=== PATIENT | male | born 1990 | race Caucasian/White ===

== ENCOUNTER 2017-01-02 19:58 | Emergency (ER) | payer MEDICAID ==
[2017-01-02 20:04] VITALS: BP 124/75; PULSE 96; O2SAT 97
--- NOTE | 2017-01-02 20:26 | ERPHSYRPT ---
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 mouth and oral area clear of any debris,lung sounds clear , pulses equal bialteral radius Physician History: ABOUT 20 MINUTES AGO PT WAS EATING AND CHOKED WITH WATERY EYES; DENIES SHORTNESS OF AIR, CHEST PAIN, FEVER, ABDOMINAL PAIN. Allergies/Adverse Reactions: No Known Drug Allergies Allergy (Verified 03/18/16 09:25) Home Medications: Acetaminophen 325 mg [Tylenol 325 mg] 325 mg PO Q4HPRN PRN 02/29/16 [ History] Fluticasone Propionate [Flonase NASAL] 2 gm NS DAILY PRN 02/29/16 [History ] Mupirocin [Bactroban OINTMENT] 0 gm TOP BID 02/29/16 [History] Phenytoin [Dilantin] 100 mg PO HS 02/29/16 [History] Hx Tetanus, Diphtheria Vaccination/Date Given: Yes Hx Influenza Vaccination/Date Given: No Hx Pneumococcal Vaccination/Date Given: No Immunizations Up to Date: Yes - Review of Systems Eyes: Other (WATERY EYES TONIGHT) Ears, Nose, & Throat: Other (CHOKING EPISODE) Respiratory: No Dyspnea Cardiac: No Chest Pain Abdominal/Gastrointestinal: No Abdominal Pain, No Vomiting All Other Systems: Reviewed and Negative - Past Medical History Pertinent Past Medical History: Yes Neurological History: Other ENT History: No Pertinent History Cardiac History: Other Respiratory History: Sleep Apnea Endocrine Medical History: No Pertinent History Musculoskeletal History: Other GI Medical History: No Pertinent History History: No Pertinent History Psycho-Social History: No Pertinent History Male Reproductive Disorders: No Pertinent History Other Medical History: MYOTONIC DYSTROPHY - Past Surgical History Past Surgical History: Yes Neuro Surgical History: No Pertinent History Cardiac: No Pertinent History Respiratory: No Pertinent History Gastrointestinal: No Pertinent History Genitourinary: No Pertinent History Musculoskeletal: Orthopedic Surgery Male Surgical History: No Pertinent History Other Surgical History: TONSILLECTOMY - PATELLA - Social History Smoking Status: Never smoker Exposure to second hand smoke: No Drug Use: none Patient Lives Alone: Yes - Nursing Vital Signs Nursing Vital Signs: Initial Vital Signs Temperature 99.2 F Temperature Source Oral Pulse Rate 96 Respiratory Rate 18 Blood Pressure [] 124/75 Pain Intensity 0 - Physical Exam General Appearance: alert Eye Exam: PERRL/EOMI Ears, Nose, Throat Exam: TMs normal, moist mucous membranes, pharyngeal erythema (MILD) Neck Exam: normal inspection Respiratory Exam: lungs clear Cardiovascular Exam: normal heart sounds Gastrointestinal/Abdomen Exam: soft, normal bowel sounds Back Exam: normal inspection Extremity Exam: No pedal edema Neurologic Exam: alert, cooperative Skin Exam: warm, dry SpO2 Interpretation: normal SpO2: 97 Oxygen Delivery: Room Air - Course Nursing assessment & vital signs reviewed: Yes - Radiology Exams Chest X-ray Interpretation: Interpreted by me, No Pneumonia Ordered Tests: Active Orders 24 hr Category Date Time Status CHEST 2 VIEWS (PA AND LAT) Stat Exams 01/02/17 20:22 Taken CULTURE, THROAT Stat Lab 01/02/17 20:45 Received STREP SCREEN-BETA A Stat Lab 01/02/17 20:45 Completed Lab/Rad Data: Laboratory Results 01/02/17 Range/Units 20:45 Streptococcus Screen NEGATIVE (Negative) - Departure Time of Disposition: 21:06 Departure Disposition: Home Clinical Impression: CHOKING EPISODE Condition: Fair Critical Care Time: No Referrals: NEVAEH HAMEED MD [Primary Care Provider] - Instructions: Oropharyngeal Dysphagia Additional Instructions: FOLLOW UP WITH PRIVATE DOCTOR TOMORROW.
--- NOTE | 2017-01-03 08:44 | XRAY ---
Indication: Choking episode. History of dysphagia. Comparison: September 09, 2016. PA/lateral chest again demonstrates normal heart and lungs with old right clavicle fracture. No new/acute findings.
== END 2017-01-02 21:10 | disposition home or self-care (01) ==
LOC: ED 19:58
DX: T17.828A Food in other parts of respiratory tract causing other injury, initial encounter (principal); G71.11 Myotonic muscular dystrophy
CPT/HCPCS: 71020; 87070; 87430; 99283; 99284

== ENCOUNTER 2018-02-06 19:23 | Emergency (ER) | payer MEDICAID ==
[2018-02-06 19:33] VITALS: BP 131/84; PULSE 90; O2SAT 98
--- NOTE | 2018-02-06 19:45 | ERPHSYRPT ---
- History of Present Illness Time Seen by Provider: 02/06/18 19:42 Source: patient, family Exam Limitations: no limitations Patient Subjective Stated Complaint: Hit head on cabinet after getting out of shower, denies complaints. Triage Nursing Assessment: Pt presents to the ED with complaints of closed head injury after hitting head on a cabinet. Pt denies LOC, denies emesis, dizziness or other complaints at this time. Pt denies pain or complaints at this time. No distress noted. Physician History: Hit head on cabinet after getting out of shower, denies complaints. Pt denies LOC, denies emesis, dizziness or other complaints at this time. Pt denies pain or complaints at this time. Occurred: just prior to arrival Reason for Fall: unknown Injuries/Pain Location: head Loss of Consciousness: no loss of consciousness Severity of Pain-Max: none Severity of Pain-Current: none Modifying Factors: Improves With: nothing Allergies/Adverse Reactions: No Known Drug Allergies Allergy (Verified 03/18/16 09:25) Home Medications: Acetaminophen 325 mg [Tylenol 325 mg] 325 mg PO Q4HPRN PRN 02/29/16 [ History] Fluticasone Propionate [Flonase NASAL] 2 gm NS DAILY PRN 02/29/16 [History ] Mupirocin [Bactroban OINTMENT] 0 gm TOP BID 02/29/16 [History] Phenytoin [Dilantin] 100 mg PO HS 02/29/16 [History] Hx Tetanus, Diphtheria Vaccination/Date Given: Yes Hx Influenza Vaccination/Date Given: Yes Hx Pneumococcal Vaccination/Date Given: No Immunizations Up to Date: Yes - Review of Systems Constitutional: No Fever, No Chills Eyes: No Symptoms Ears, Nose, & Throat: No Symptoms Respiratory: No Cough, No Dyspnea Cardiac: No Chest Pain, No Edema, No Syncope Abdominal/Gastrointestinal: No Abdominal Pain, No Nausea, No Vomiting, No Diarrhea Genitourinary Symptoms: No Dysuria Musculoskeletal: No Back Pain, No Neck Pain Skin: No Rash Neurological: No Dizziness, No Focal Weakness, No Sensory Changes Psychological: No Symptoms Endocrine: No Symptoms All Other Systems: Reviewed and Negative - Past Medical History Pertinent Past Medical History: Yes Neurological History: No Pertinent History ENT History: No Pertinent History Cardiac History: No Pertinent History Respiratory History: Other Endocrine Medical History: No Pertinent History Musculoskeletal History: Muscular Dystrophy GI Medical History: No Pertinent History History: No Pertinent History Psycho-Social History: No Pertinent History Male Reproductive Disorders: No Pertinent History Other Medical History: sleeps with bypap, speech difficulty, 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 - Past Surgical History Past Surgical History: Yes Neuro Surgical History: No Pertinent History Cardiac: No Pertinent History Respiratory: No Pertinent History Gastrointestinal: No Pertinent History Genitourinary: No Pertinent History Musculoskeletal: Orthopedic Surgery Male Surgical History: No Pertinent History Other Surgical History: TONSILLECTOMY - PATELLA - Social History Smoking Status: Never smoker Exposure to second hand smoke: No Drug Use: none Patient Lives Alone: No - Nursing Vital Signs Nursing Vital Signs: Initial Vital Signs Temperature 97.6 F 02/06/18 19:30 Pulse Rate 90 02/06/18 19:30 Respiratory Rate 16 02/06/18 19:30 Blood Pressure 131/84 02/06/18 19:30 O2 Sat by Pulse Oximetry 98 02/06/18 19:30 Pain Scale Pain Intensity 0 - Esperanza Coma Score Best Eye Response (Esperanza): (4) open spontaneously Best Verbal Response (Es[place]): (5) oriented Best Motor Response (Es[place]): (6) obeys commands [place] Total: 15 - Physical Exam General Appearance: no apparent distress, alert Head Injury: no evidence of injury Eye Exam: PERRL/EOMI ENT Exam: airway nml Neck Exam: normal inspection, No tenderness Respiratory/Chest Exam: normal breath sounds, No chest tenderness, No respiratory distress Cardiovascular Exam: normal heart sounds, regular rate/rhythm Gastrointestinal Exam: soft, No tenderness, No distention, No guarding, No ecchymosis Back Exam: normal inspection, No vertebral tenderness Extremity Exam: normal inspection, normal range of motion, pelvis stable, No deformities Neurologic Exam: alert, oriented x 3, cooperative, sensation nml, No motor deficits Skin Exam: normal color, warm, dry SpO2: 98 Oxygen Delivery: Room Air - Course Nursing assessment & vital signs reviewed: Yes - Progress Progress: improved Counseled pt/family regarding: diagnosis, need for follow-up - Departure Time of Disposition: 19:44 Departure Disposition: Home Clinical Impression: Head injury, closed, without LOC Qualifiers: Encounter type: initial encounter Qualified Code(s): S09.90XA - Unspecified injury of head, initial encounter Condition: Stable Critical Care Time: No Referrals: DOCTOR,NO FAMILY [Primary Care Provider] - Instructions: Minor Head Injury (DC), Minor Head Injury Additional Instructions: HEAD INJURY 1. A responsible person should observe the patient at home for 24 hours. 2. If any of the following signs or symptoms are observed or occur, call your family physician or return to the emergency department: A. Behavior change B. Persistent vomiting C. Unequal pupils D. Increasing drowsiness E. Difficulty in arousing the patient F. Severe headache G. Lump on head increasing in size LEOLA HINES was seen on 02/06/18 n the Emergency Room. At that time you were treated for an emergent condition, during your visit Laboratory, Radiology and/or other procedures may have been ordered. It is very important that you follow-up with your Primary Care Physician NO FAMILY DOCTOR within the next 24-48 hours to review your Emergency Room visit and the final results of testing that was ordered. Some test results such as Urine Cultures, Blood Cultures, and other cultures if ordered will not be finalized for 24-48 hours. If you do not have a Primary Care Provider please call the medical records department at [phone] to obtain a copy of your results or you may sign into our patient portal to obtain these results by visiting us @ [email or web address] and completing the following steps: 1. Click on the Patient Portal link 2. Click the Patient Self Enrollment Link to complete the enrollment form and entering your 3. Once the enrollment form is completed you will receive an email with a temporary ID and password at the email address you provided. 4. Next choose a user name and password. Your user name must be at least 4 characters long and your password must be at least 4 characters long. 5. Choose a security question from the list and provide your answer to the question. If you already have signed into the Health Portal you may access your Health Care Information 09/06 by the following steps: 1. Login to our website @ [email or web address] 2. Enter your original user name and password. FAQS The [facility] Health Portal is an online tool that contains your Lab Results, Radiology Reports, Visit History, Discharge Instructions and Health Summary Lab and Radiology Results will not be available for 72 hours on the portal. The Portal is a secure site, passwords are encryted and URLs are re-written so they cannot be copied and pasted. You and authorized family members are the only ones who can access your Portal. Also there is a timeout feature that protects your information if you leave the Portal page open. If you have technical difficulty please use the Contact Us link on the page this will allow you to submit any questions you have regarding the Portal or you may contact the Medical Record Department at [phone].
== END 2018-02-06 20:03 | disposition home or self-care (01) ==
LOC: ED 19:23
DX: S09.90XA Unspecified injury of head, initial encounter (principal); W22.8XXA Striking against or struck by other objects, initial encounter
CPT/HCPCS: 99281

== ENCOUNTER 2018-07-14 19:36 | Emergency (ER) | payer MEDICAID ==
[2018-07-14 19:53] VITALS: BP 111/69; PULSE 84; O2SAT 99
--- NOTE | 2018-07-14 21:18 | ERPHSYRPT ---
- History of Present Illness Time Seen by Provider: 07/14/18 21:12 Source: patient Exam Limitations: no limitations Patient Subjective Stated Complaint: pt was eating [employer] soft shell taco, felt like something was stuck in his esophagus, vomited, tried eating and drinking again, vomited again and now feels fine. States no longer feels like something is stuck. Triage Nursing Assessment: see above Physician History: The patient is a 27-year-old male with his caregiver from [facility] living where it was noted that while eating a soft shelled taco, felt like something was stuck in his throat. The patient vomited. It still felt like something was stuck. He vomited a second time and felt like everything had improved back to normal. He has a history of dysphagia and by the penitentiary protocol he was obligated to be evaluated. He denies shortness of breath or cough. Timing/Duration: abrupt onset, this evening Severity: moderate ENT Location: throat Prearrival Treatment: no prearrival treatment Associated Symptoms: other (throat foreign body) Allergies/Adverse Reactions: No Known Drug Allergies Allergy (Verified 07/14/18 19:53) Home Medications: Acetaminophen 325 mg [Tylenol 325 mg] 325 mg PO Q4HPRN PRN 02/29/16 [ History] Fluticasone Propionate [Flonase NASAL] 2 gm NS DAILY PRN 02/29/16 [History ] Mupirocin [Bactroban OINTMENT] 0 gm TOP BID 02/29/16 [History] Phenytoin [Dilantin] 100 mg PO HS 02/29/16 [History] Folic Acid/Multivit,Iron,[place] [Centrum Chewable Tablet] 1 each PO 07/14/18 [ History] Loratadine 10 mg [Claritin 10 mg] 10 mg PO DAILY 07/14/18 [History] Hx Tetanus, Diphtheria Vaccination/Date Given: Yes Hx Influenza Vaccination/Date Given: Yes Hx Pneumococcal Vaccination/Date Given: No - Review of Systems Constitutional: No Fever, No Chills Eyes: No Symptoms Ears, Nose, & Throat: Other (throat foreign body) Respiratory: No Cough, No Dyspnea Cardiac: No Chest Pain, No Edema, No Syncope Abdominal/Gastrointestinal: No Abdominal Pain, No Nausea, No Vomiting, No Diarrhea Genitourinary Symptoms: No Dysuria Musculoskeletal: No Back Pain, No Neck Pain Skin: No Rash Neurological: No Dizziness, No Focal Weakness, No Sensory Changes Psychological: No Symptoms Endocrine: No Symptoms Hematologic/Lymphatic: No Symptoms Immunological/Allergic: No Symptoms All Other Systems: Reviewed and Negative - Past Medical History Pertinent Past Medical History: Yes Neurological History: No Pertinent History ENT History: No Pertinent History Cardiac History: No Pertinent History Respiratory History: Other Endocrine Medical History: No Pertinent History Musculoskeletal History: Muscular Dystrophy GI Medical History: No Pertinent History History: No Pertinent History Psycho-Social History: No Pertinent History Male Reproductive Disorders: No Pertinent History Other Medical History: sleeps with bypap, speech difficulty, 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 - Past Surgical History Past Surgical History: Yes Neuro Surgical History: No Pertinent History Cardiac: No Pertinent History Respiratory: No Pertinent History Gastrointestinal: No Pertinent History Genitourinary: No Pertinent History Musculoskeletal: Orthopedic Surgery Male Surgical History: No Pertinent History Other Surgical History: TONSILLECTOMY - PATELLA - Social History Smoking Status: Never smoker Exposure to second hand smoke: No Drug Use: none Patient Lives Alone: No - Nursing Vital Signs Nursing Vital Signs: Initial Vital Signs Temperature 97.9 F 07/14/18 19:46 Pulse Rate 84 07/14/18 19:46 Respiratory Rate 18 07/14/18 19:46 Blood Pressure 111/69 07/14/18 19:46 O2 Sat by Pulse Oximetry 99 07/14/18 19:46 Pain Scale Pain Intensity 0 - Physical Exam General Appearance: no apparent distress, alert Eye Exam: bilateral eye: PERRL, EOMI Nasal Exam: normal inspection Throat Exam: pharynx normal, moist mucus membranes, No tonsillar exudate Neck Exam: supple Cardiovascular/Respiratory Exam: normal breath sounds, regular rate/rhythm Abdominal Exam: non-tender, soft Neurologic Exam: alert, oriented x 3, sensation nml, No motor deficits Skin Exam: normal color, warm, dry SpO2: 99 Oxygen Delivery: Room Air - Progress Progress: improved Progress Note: 07/14/18 21:19 Pt ate solid food and drank fluids in ER without any problems. Counseled pt/family regarding: diagnosis - Departure Time of Disposition: 21:20 Departure Disposition: Home Clinical Impression: Foreign body in throat Condition: Stable Critical Care Time: No Referrals: NEVAEH HAMEED MD [Primary Care Provider] - Additional Instructions: You had a foreign body lodged in your throat while you were eating. You vomited twice dislodging the foreign body. You were able to drink fluids and eat solid food in the ER without any difficulty. Follow-up with your primary medical doctor as needed.
== END 2018-07-14 21:26 | disposition home or self-care (01) ==
LOC: ED 19:36
DX: T17.208A Unspecified foreign body in pharynx causing other injury, initial encounter (principal); Z79.899 Other long term (current) drug therapy
CPT/HCPCS: 99283

== ENCOUNTER 2019-02-21 19:05 | Emergency (ER) | payer MEDICAID ==
[2013-08-13 10:36] VITALS: BP 108/62
--- NOTE | 2019-02-21 19:45 | ERPHSYRPT ---
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 Patient A+O X 3. Patient lives at home with staff assisting him from 8am- 10pm daily. Patient and staff state patient tripped off of a curb causing him to fall and land on knees and hands. Patient and staff denies hitting head. Patient complains of left shoulder pain 9/10. No visible areas noted to left shoulder. Patient also complains of mid lower back pain 4/10 with no visible areas noted. Patient has abrasions to saul knees. Physician History: Pt tripped over the curb and fell, injured his elbows, left shoulder, back and both knees. 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 He is mentally challenged, he is unable to give detailed history. Occurred: just prior to arrival Reason for Fall: tripped Injuries/Pain Location: upper extremity, back, lower extremity Loss of Consciousness: no loss of consciousness Quality: sharpness Severity of Pain-Max: moderate Severity of Pain-Current: mild Modifying Factors: Improves With: nothing Associated Symptoms (Fall): denies symptoms Allergies/Adverse Reactions: No Known Drug Allergies Allergy (Unverified 02/21/19 19:14) Hx Influenza Vaccination/Date Given: Yes Hx Pneumococcal Vaccination/Date Given: No Immunizations Up to Date: Yes - Review of Systems Constitutional: No Symptoms Ears, Nose, & Throat: No Symptoms Respiratory: No Symptoms Cardiac: No Symptoms Abdominal/Gastrointestinal: No Symptoms Genitourinary Symptoms: No Symptoms Musculoskeletal: Other (bilateral elbow, left posterior shoulder and both knees are painful upon movements.) Skin: No Symptoms Neurological: No Symptoms All Other Systems: Reviewed and Negative - Past Medical History Pertinent Past Medical History: No Neurological History: No Pertinent History ENT History: No Pertinent History Cardiac History: No Pertinent History Respiratory History: No Pertinent History Endocrine Medical History: No Pertinent History Musculoskeletal History: No Pertinent History GI Medical History: No Pertinent History History: No Pertinent History Psycho-Social History: No Pertinent History Male Reproductive Disorders: No Pertinent History - Past Surgical History Past Surgical History: Yes Neuro Surgical History: No Pertinent History Cardiac: No Pertinent History Respiratory: No Pertinent History Gastrointestinal: Cholecystectomy Genitourinary: No Pertinent History Musculoskeletal: No Pertinent History Male Surgical History: No Pertinent History - Social History Smoking Status: Never smoker Exposure to second hand smoke: No Drug Use: none Patient Lives Alone: Yes (has care staff 8a-10p daily) - Nursing Vital Signs Nursing Vital Signs: Initial Vital Signs Temperature 98.3 F 02/21/19 19:15 Pulse Rate 77 02/21/19 19:15 Respiratory Rate 18 02/21/19 19:15 Blood Pressure 128/77 02/21/19 19:15 O2 Sat by Pulse Oximetry 94 L 02/21/19 19:15 Pain Scale Pain Intensity 9 - [place] Coma Score Best Eye Response ([place]): (4) open spontaneously Best Verbal Response ([place]): (5) oriented Best Motor Response ([place]): (6) obeys commands [place] Total: 15 - Physical Exam General Appearance: no apparent distress Head Injury: no evidence of injury Eye Exam: PERRL/EOMI, eyes nml inspection ENT Exam: airway nml, No evidence of ENT injury, No dental injury Neck Exam: supple, trachea midline, full range of motion, normal alignment, normal inspection, No focal neuro deficit, No muscle spasm Respiratory/Chest Exam: normal breath sounds, No chest tenderness, No respiratory distress, No ecchymosis, No crepitus Cardiovascular Exam: normal heart sounds, regular rate/rhythm, normal peripheral pulses, No murmur, No edema Gastrointestinal Exam: soft, normal bowel sounds, No tenderness, No distention, No mass, No guarding, No ecchymosis, No rebound Back Exam: normal inspection, other (diffuse, bilateral lumbo-sacral tenderness , no swelling, ecchymosis.) Extremity Exam: normal inspection, normal range of motion, pelvis stable, other (both olecranons and anterior knees are tender, no swelling or ecchymosis, no effusion, good ROM, pain free, normal distral pulses) Peripheral Pulses: dorsalis-pedis (R): 3+, dorsalis-pedis (L): 3+ Neurologic Exam: alert, oriented x 3, cooperative, normal mood/affect Skin Exam: normal color, warm, dry, No rash SpO2 Interpretation: normal SpO2: 94 O2 Delivery: Room Air - Course Nursing assessment & vital signs reviewed: Yes - Radiology Exams Left Elbow X-ray Interpretation: Interpreted by me, Negative Right Elbow X-ray Interpretation: Interpreted by me, Negative Left Knee X-ray Interpretation: Interpreted by me, Negative Right Knee X-ray Interpretation: Interpreted by me, Negative Left Shoulder X-ray Interpretation: Interpreted by me, Negative L-Spine X-ray Interpretation: Interpreted by me, Negative Ordered Tests: Active Orders 24 hr Category Date Time Status ELBOW (MINIMUM 3 VIEWS) Stat Exams 02/21/19 19:38 Taken ELBOW (MINIMUM 3 VIEWS) Stat Exams 02/21/19 19:39 Taken KNEE (1 OR 2 VIEW) Stat Exams 02/21/19 19:38 Taken KNEE (1 OR 2 VIEW) Stat Exams 02/21/19 19:39 Taken LUMBAR LIMITED (2 OR 3 VIEWS) Stat Exams 02/21/19 19:39 Taken SHOULDER Stat Exams 02/21/19 19:43 Taken - Progress Progress: unchanged Progress Note: 02/21/19 21:16 We reviewed his X rays, all negative, 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 Counseled pt/family regarding: diagnosis, need for follow-up, rad results - Departure Departure Disposition: Home Clinical Impression: Back contusion Qualifiers: Encounter type: initial encounter Laterality: unspecified laterality Qualified Code(s): S20.229A - Contusion of unspecified back wall of thorax, initial encounter Condition: Stable Critical Care Time: No Referrals: NEVAEH HAMEED MD [Primary Care Provider] - Instructions: Contusion (DC), Low Back Pain (DC), Preventing Falls Additional Instructions: Rest x 1-2 days, apply ice to swelling, return if severe headaches, vomiting, lethargy !
[2019-02-21 22:16] VITALS: BP 106/61; PULSE 72; O2SAT 96
--- NOTE | 2019-02-22 09:07 | XRAY ---
Indication: Pain following fall. Comparison: None AP/lateral right knee demonstrates minimal medial joint space narrowing. No other bony, articular, or soft tissue abnormalities.
--- NOTE | 2019-02-22 09:09 | XRAY ---
Indication: Pain following fall. Comparison: None 3 views of the left shoulder obtained. No bony, articular, or soft tissue abnormalities.
--- NOTE | 2019-02-22 09:10 | XRAY ---
Indication: Pain following fall. Comparison: None 3 views of the left elbow obtained. No bony, articular, or soft tissue abnormalities.
--- NOTE | 2019-02-22 09:10 | XRAY ---
Indication: Pain following fall. Comparison: None 3 views of the right elbow obtained. No bony, articular, or soft tissue abnormalities.
--- NOTE | 2019-02-22 09:10 | XRAY ---
Indication: Pain following fall. Comparison: None AP/lateral left knee obtained. No bony, articular, or soft tissue abnormalities.
--- NOTE | 2019-02-22 09:12 | XRAY ---
Indication: Pain following fall. Comparison: None 3 views of the lumbar spine demonstrates 5 lumbar vertebral segments in normal alignment with minimal L5-S1 disc space narrowing. No other bony, articular, or soft tissue abnormalities.
== END 2019-02-21 22:18 | disposition home or self-care (01) ==
LOC: MERGE 19:05 → ED 19:05
DX: S20.229A Contusion of unspecified back wall of thorax, initial encounter (principal); M54.5 Low back pain; M25.512 Pain in left shoulder; W01.198A Fall on same level from slipping, tripping and stumbling with subsequent striking against other object, initial encounter; S80.212A Abrasion, left knee, initial encounter; S80.211A Abrasion, right knee, initial encounter; M25.562 Pain in left knee; M25.561 Pain in right knee; M25.522 Pain in left elbow; M25.521 Pain in right elbow
CPT/HCPCS: 72100; 73030; 73080; 73560; 99283

== ENCOUNTER 2019-02-23 19:03 | Emergency (ER) | payer MEDICAID ==
[2019-02-23 19:25] VITALS: BP 124/73; PULSE 95; O2SAT 95
--- NOTE | 2019-02-23 19:39 | ERPHSYRPT ---
- History of Present Illness Time Seen by Provider: 02/23/19 19:30 Source: patient Exam Limitations: clinical condition Patient Subjective Stated Complaint: pt states he was looking at phone while walking and tripped and fell this afternoon. pt c/o pain in left arm and rt knee. Triage Nursing Assessment: Pt pink/warm/dry, resp easy, a&ox4, steady gait, abrasions to left elbow and saul knees noted. pt has physical disabilities and congnitive defecits noted. caregiver at bedside. Physician History: PATIENT WITH A HISTORY CONGENITAL MYOTONIC DYSTROPHY WHILE WALKING DOWN SIDEWALK , CAUGHT HIS FOOT AGAINST STEP AND FELL TO GROUND SUSTAINING INJURY TO HIS LEFT ELBOW AND RIGHT KNEE. DENIES HEAD, NECK OR BACK PAIN. PATIENT COMPLAINS OF ABRASIONS OVER ELBOW AND KNEE. Occurred: just prior to arrival Reason for Fall: tripped, fell from standing pos Injuries/Pain Location: upper extremity, lower extremity Loss of Consciousness: still comatose Quality: aching Severity of Pain-Max: none Severity of Pain-Current: none Modifying Factors: Improves With: nothing Associated Symptoms (Fall): denies symptoms Allergies/Adverse Reactions: No Known Drug Allergies Allergy (Verified 02/23/19 19:14) Home Medications: Acetaminophen 325 mg [Tylenol 325 mg] 325 mg PO Q4HPRN PRN 02/29/16 [ History] Fluticasone Propionate [Flonase NASAL] 2 gm NS DAILY PRN PRN 02/29/16 [ History] Phenytoin [Dilantin] 100 mg PO BID 02/29/16 [History] Loratadine 10 mg [Claritin 10 mg] 10 mg PO DAILY 07/14/18 [History] Multivit-Min/Iron/Folic/Vit K1 [Centrum Chewable Tablet] 1 each PO DAILY [History] Dextromethorphan HBr [Delsym] 30 mg PO DIRECTIONS UNKNOWN PRN 02/23/19 [History] Hx Tetanus, Diphtheria Vaccination/Date Given: Yes Hx Influenza Vaccination/Date Given: Yes Hx Pneumococcal Vaccination/Date Given: Yes Immunizations Up to Date: Yes - Review of Systems Constitutional: No Fever, No Chills Eyes: No Symptoms Ears, Nose, & Throat: No Symptoms Respiratory: No Symptoms, No Cough, No Dyspnea Cardiac: No Chest Pain, No Edema, No Syncope Abdominal/Gastrointestinal: No Symptoms, No Abdominal Pain, No Nausea, No Vomiting, No Diarrhea Genitourinary Symptoms: No Dysuria Musculoskeletal: Injury, Other (ABRASIONS WITH SWELLING OVER EXTREMITIES), No Back Pain, No Neck Pain Skin: No Rash Neurological: No Dizziness, No Focal Weakness, No Sensory Changes Psychological: No Symptoms Endocrine: No Symptoms All Other Systems: Reviewed and Negative - Past Medical History Pertinent Past Medical History: Yes Neurological History: No Pertinent History, Other ENT History: No Pertinent History Cardiac History: No Pertinent History Respiratory History: No Pertinent History, Sleep Apnea, Other Endocrine Medical History: No Pertinent History Musculoskeletal History: No Pertinent History, Muscular Dystrophy GI Medical History: No Pertinent History History: No Pertinent History Psycho-Social History: No Pertinent History Male Reproductive Disorders: No Pertinent History Other Medical History: Poor historian. Congenital myotonic dystrophy. bipap for sleep - Past Surgical History Past Surgical History: Yes Neuro Surgical History: No Pertinent History Cardiac: No Pertinent History Respiratory: No Pertinent History Gastrointestinal: No Pertinent History, Cholecystectomy Genitourinary: No Pertinent History Musculoskeletal: No Pertinent History, Orthopedic Surgery, Other Male Surgical History: No Pertinent History Other Surgical History: TONSILLECTOMY - PATELLA, cyst removed from leg - Social History Smoking Status: Never smoker Exposure to second hand smoke: No Drug Use: none Patient Lives Alone: Yes (with caregivers during the day) - Nursing Vital Signs Nursing Vital Signs: Initial Vital Signs Temperature 97.7 F 02/23/19 19:17 Pulse Rate 95 H 02/23/19 19:17 Respiratory Rate 16 02/23/19 19:17 Blood Pressure 124/73 02/23/19 19:17 O2 Sat by Pulse Oximetry 95 02/23/19 19:17 Pain Scale Pain Intensity 9 - Physical Exam General Appearance: no apparent distress, alert Head Injury: no evidence of injury Eye Exam: PERRL/EOMI ENT Exam: airway nml Neck Exam: normal inspection, No tenderness Respiratory/Chest Exam: normal breath sounds, No chest tenderness, No respiratory distress Cardiovascular Exam: normal heart sounds, regular rate/rhythm Gastrointestinal Exam: soft, No tenderness, No distention, No guarding, No ecchymosis Back Exam: normal inspection, No vertebral tenderness Extremity Exam: normal inspection, normal range of motion, pelvis stable, tenderness (RIGHT KNEE, PATELLA MIDLINE AND MOBILE, ABRASION 1.5CM X 2CM OVER LATERAL FEMORAL CONDYLE, FULL RANGE OF MOTION, NO JOINT LAXITY UPON VARUS/ VALGUS STRESS, NEGATIVE ANTERIOR DRAW SIGN.), other (LEFT ELBOW FULL RANGE OF MOTION, THERE IS A ABRASION 1.5CM X 1CM OVER LATERAL ASPECT OLECRANON, NO CREPITUS OR ECCHYMOSIS, MINIMAL SWELLING), No deformities Neurologic Exam: alert, oriented x 3, cooperative, sensation nml, No motor deficits Skin Exam: normal color, warm, dry SpO2: 95 - Radiology Exams Right Knee X-ray Interpretation: Interpreted by me, Negative, No Fracture Left Elbow X-ray Interpretation: Interpreted by me, Negative, No Fracture Ordered Tests: Active Orders 24 hr Category Date Time Status Wound Care STAT Care 02/23/19 19:39 Active ELBOW (MINIMUM 3 VIEWS) Stat Exams 02/23/19 19:34 Taken KNEE (3 VIEWS) Stat Exams 02/23/19 19:35 Taken - Progress Progress Note: 02/23/19 19:48 PATIENT REFUSES ANALGESICS - Departure Departure Disposition: Home Clinical Impression: CONTUSION LEFT ELBOW/RIGHT KNEE Condition: Stable Critical Care Time: No Referrals: NEVAEH HAMEED MD [Primary Care Provider] - Instructions: Contusion (DC) Additional Instructions: TYLENOL OR MOTRIN NEEDED FOR PAIN. CLEANSE WOUND WITH SOAP AND WATER TWICE DAILY FOLLOWED BY APPLICATION OF BACITRACIN TWICE DAILY FOR 7 DAYS. WATCH FOR SIGNS OF INFECTION REDNESS SWELLING OR DRAINAGE.
--- NOTE | 2019-02-24 08:38 | XRAY ---
Indication: Pain following fall. Comparison: None 3 views of the left elbow obtained. No bony, articular, or soft tissue abnormalities.
--- NOTE | 2019-02-24 08:41 | XRAY ---
Indication: Pain following fall. Comparison: None 3 views of the right knee demonstrates minimal medial joint space narrowing. No other bony, articular, or soft tissue abnormalities.
== END 2019-02-23 20:43 | disposition home or self-care (01) ==
LOC: ED 19:03
DX: S50.02XA Contusion of left elbow, initial encounter (principal); S80.01XA Contusion of right knee, initial encounter; W01.198A Fall on same level from slipping, tripping and stumbling with subsequent striking against other object, initial encounter; Y93.89 Activity, other specified; S50.312A Abrasion of left elbow, initial encounter; S80.212A Abrasion, left knee, initial encounter; S80.211A Abrasion, right knee, initial encounter; G71.11 Myotonic muscular dystrophy; Z79.899 Other long term (current) drug therapy; G47.30 Sleep apnea, unspecified
CPT/HCPCS: 73080; 73562; 99283

== ENCOUNTER 2019-11-10 19:25 | Emergency (ER) | payer MEDICAID ==
[2019-11-10] MEDS ORDERED: NORCO 5/325 MG PO ONE (21:56)
[2019-11-10] MEDS ORDERED: Zithromax 250 MG TABLET PO ONE (21:56)
[2019-11-10] MEDS ORDERED: Rocephin 1000 MG INJ IM ONE (21:56)
[2019-11-10] MEDS ORDERED: TORAdol 30 mg Injection IM ONE (21:56)
[2019-11-10] MEDS ORDERED: Cyclobenzaprine 10 MG PO ONE (21:56)
[2019-11-10] MEDS ORDERED: DUONEB 0.5-3 MG/3 ml Neb IH ONE ×2 (21:58→22:04)
--- NOTE | 2019-11-10 22:03 | ERPHSYRPT ---
- History of Present Illness Time Seen by Provider: 11/10/19 21:35 Source: patient, other (Credit Administration Manager) Patient Subjective Stated Complaint: pt arrived with caregiver stating that he has been feeling sick with cough congestion and fever since last pm Triage Nursing Assessment: pt alert and oriented, pt slurred speech is baseline , has caregiver in home who has accompanied him today, caregiver states he has been coughing and has had fever since last night. Physician History: cough and congestion for 5-6 days if. Also has a left scapular area pain that increases with movement of the left upper extremity. Head of fever at home. Vomited once. Patient has swallowing difficulties so has to have a caregiver when he eats any food. Timing/Duration: day(s) (5) Cough Quality/Degree: moderate, dry cough Possible Cause: occasional episodes Modifying Factors: Improves With: coughing, deep breath Associated Symptoms: fever, cough, No chills, No chest pain/soreness, No dizziness, No earache, No facial pain, No headache, No lightheadedness, No muscle aches, No nasal congestion, No nasal drainage, No shortness of breath, No sinus infection, No sore throat International travel in last 2 weeks: No Allergies/Adverse Reactions: No Known Drug Allergies Allergy (Verified 11/10/19 21:50) Home Medications: Acetaminophen 325 mg [Tylenol 325 mg] 325 mg PO Q4HPRN PRN 02/29/16 [ History] Fluticasone Propionate [Flonase NASAL] 2 gm NS DAILY PRN PRN 02/29/16 [ History] Phenytoin [Dilantin] 100 mg PO BID 02/29/16 [History] Loratadine 10 mg [Claritin 10 mg] 10 mg PO DAILY 07/14/18 [History] Multivit-Min/Iron/Folic/Vit K1 [Centrum Chewable Tablet] 1 each PO DAILY [History] Dextromethorphan HBr [Delsym] 30 mg PO DIRECTIONS UNKNOWN PRN 02/23/19 [History] Hx Tetanus, Diphtheria Vaccination/Date Given: Yes Hx Influenza Vaccination/Date Given: Yes Hx Pneumococcal Vaccination/Date Given: Yes - Review of Systems Constitutional: Fever, No Chills Eyes: No Symptoms Ears, Nose, & Throat: No Symptoms Respiratory: Cough, No Dyspnea Cardiac: No Chest Pain, No Edema, No Syncope Abdominal/Gastrointestinal: No Abdominal Pain, No Nausea, No Vomiting, No Diarrhea Genitourinary Symptoms: No Dysuria Musculoskeletal: Other (left scapular area muscular pain), No Back Pain, No Neck Pain Skin: No Symptoms, No Rash Neurological: No Dizziness, No Focal Weakness, No Sensory Changes Psychological: No Symptoms Endocrine: No Symptoms All Other Systems: Reviewed and Negative - Past Medical History Pertinent Past Medical History: Yes Neurological History: No Pertinent History, Other ENT History: No Pertinent History Cardiac History: No Pertinent History Respiratory History: No Pertinent History, Sleep Apnea, Other Endocrine Medical History: No Pertinent History Musculoskeletal History: No Pertinent History, Muscular Dystrophy GI Medical History: No Pertinent History History: No Pertinent History Psycho-Social History: No Pertinent History Male Reproductive Disorders: No Pertinent History Other Medical History: Poor historian. Congenital myotonic dystrophy. bipap for sleep - Past Surgical History Past Surgical History: Yes Neuro Surgical History: No Pertinent History Cardiac: No Pertinent History Respiratory: No Pertinent History Gastrointestinal: No Pertinent History, Cholecystectomy Genitourinary: No Pertinent History Musculoskeletal: No Pertinent History, Orthopedic Surgery, Other Male Surgical History: No Pertinent History Other Surgical History: TONSILLECTOMY - PATELLA, cyst removed from leg - Social History Smoking Status: Never smoker Exposure to second hand smoke: No Drug Use: none Patient Lives Alone: Yes (with caregivers during the day) - Nursing Vital Signs Nursing Vital Signs: Initial Vital Signs Temperature 98.4 F 11/10/19 21:42 Pulse Rate 82 11/10/19 21:42 Respiratory Rate 18 11/10/19 21:42 Blood Pressure 107/75 11/10/19 21:42 O2 Sat by Pulse Oximetry 98 11/10/19 21:42 Pain Scale Pain Intensity 7 - Physical Exam General Appearance: no apparent distress, alert Eye Exam: PERRL/EOMI, eyes nml inspection Ears, Nose, Throat Exam: normal ENT inspection, TMs normal, pharynx normal, moist mucous membranes Neck Exam: normal inspection, non-tender, supple, full range of motion Respiratory Exam: normal breath sounds, lungs clear, No respiratory distress Cardiovascular Exam: regular rate/rhythm, normal heart sounds Gastrointestinal/Abdomen Exam: soft, No tenderness Back Exam: normal inspection, other (left scapular area muscular pain with spasm , painful range of motion of the left UE), No CVA tenderness, No vertebral tenderness Extremity Exam: normal inspection, normal range of motion Neurologic Exam: alert, oriented x 3, cooperative, normal mood/affect, sensation nml, No motor deficits Skin Exam: normal color, warm, dry, No rash Lymphatic Exam: No adenopathy SpO2 Interpretation: normal SpO2: 98 O2 Delivery: Room Air - Course Nursing assessment & vital signs reviewed: Yes Ordered Tests: Medication Summary Generic Name Dose Route Start Last Admin Trade Name Freq PRN Reason Stop Dose Admin Prednisone 20 mg 11/11/19 21:58 Deltasone 20 Mg PO 11/11/19 21:59 STAT ONE Discontinued Medications Generic Name Dose Route Start Last Admin Trade Name Freq PRN Reason Stop Dose Admin Hydrocodone Bitart/Acetaminophen 1 tab 11/10/19 21:56 [place] 5/325 Mg PO 11/10/19 21:57 STAT ONE Azithromycin 500 mg 11/10/19 21:56 Zithromax 250 Mg Tablet PO 11/10/19 21:57 STAT ONE Ceftriaxone Sodium 1,000 mg 11/10/19 21:56 Rocephin 1000 Mg Inj IM 11/10/19 21:57 STAT ONE Cyclobenzaprine HCl 10 mg 11/10/19 21:56 Cyclobenzaprine 10 Mg PO 11/10/19 21:57 STAT ONE Ketorolac Tromethamine 30 mg 11/10/19 21:56 Toradol 30 Mg Injection IM 11/10/19 21:57 STAT ONE - Progress Progress: unchanged Air Movement: good Progress Note: no acute life or limb threatening condition on discharge. 11/10/19 22:01 Blood Culture(s) Obtained: No Antibiotics given: No - Departure Departure Disposition: Home Clinical Impression: Bronchitis, Strain of fascia at thorax level Condition: Good Critical Care Time: No Referrals: NEVAEH HAMEED MD [Primary Care Provider] - Follow Up with PCP/3 days Instructions: Acute Bronchitis, Muscle Strain Prescriptions: Azithromycin 250 mg [Zithromax 250 MG TABLET] 250 mg PO ZPACK #6 tablet Cyclobenzaprine HCl [Flexeril] 5 mg PO BID 5 Days #10 tablet
[2019-11-10] MEDS ORDERED: Zithromax 250 MG TABLET ONE (22:31)
[2019-11-10] MEDS ORDERED: TORAdol 30 mg Injection ONE (22:31)
[2019-11-10] MEDS ORDERED: Cyclobenzaprine 10 MG ONE (22:31)
[2019-11-10] MEDS ORDERED: NORCO 5/325 MG ONE (22:32)
[2019-11-10] MEDS ORDERED: DELTASONE 20 MG ONE (22:32)
[2019-11-10] MEDS ORDERED: Rocephin 1000 MG INJ ONE (22:32)
[2019-11-10] MEDS ORDERED: XYLOCAINE 1% HCL 20 ML MDV ONE (22:42)
[2019-11-10 22:52] VITALS: BP 118/71; PULSE 92; O2SAT 98
[2019-11-11] MEDS ORDERED: DELTASONE 20 MG PO ONE (21:58)
== END 2019-11-10 22:57 | disposition home or self-care (01) ==
LOC: ED 19:25
DX: J40 Bronchitis, not specified as acute or chronic (principal); S29.019A Strain of muscle and tendon of unspecified wall of thorax, initial encounter; X58.XXXA Exposure to other specified factors, initial encounter
CPT/HCPCS: 94150; 94640; 96372; 99284; J0696; J1885; A9270-GY

== ENCOUNTER 2021-05-16 12:36 | Emergency (ER) | payer MEDICAID ==
[2021-05-16 12:54] VITALS: O2SAT 99
--- NOTE | 2021-05-16 13:11 | ERPHSYRPT ---
- History of Present Illness Source: patient, other (Caregiver) Exam Limitations: no limitations Patient Subjective Stated Complaint: Patient and staff caregiver from [facility] state that patient choked on his food at facility, vomited, and had to be brought in per facility protocal. Patient states he is having no symptoms or discomfort at this time. Patient is high choking risk d/t medical dx- mitonic dystrophy. VS WNL. Triage Nursing Assessment: Patient to ED d/t choking/aspiration while eating lunch. Lungs sounds clear throughout, VS WNL. Physician History: 30 yo wm w myotonic dystrophy choked on some water/food at lunch. Since pt is an aspiration risk, his treatment plan requires that he is evaluated in the ER. Pt is awake/alert and in NAD. He vomited x1. Fever/diarrhea/hematemesis/chest pain/cough/dyspnea all denied. Timing/Duration: today Severity: mild Modifying Factors: Improves With: eating. Worsens With: cold therapy, immobilization, medication, movement, rest, acetaminophen, ibuprofen, nothing Associated Symptoms: denies symptoms, vomiting Allergies/Adverse Reactions: No Known Drug Allergies Allergy (Verified 05/16/21 12:54) Home Medications: Acetaminophen 325 mg [Tylenol 325 mg] 325 mg PO Q4HPRN PRN 02/29/16 [History] Fluticasone Propionate [Flonase NASAL] 2 gm NS DAILY PRN PRN 02/29/16 [History] Phenytoin [Dilantin] 100 mg PO BID 02/29/16 [History] Loratadine 10 mg [Claritin 10 mg] 10 mg PO DAILY 07/14/18 [History] Multivit-Min/Iron/Folic/Vit K1 [Centrum Chewable Tablet] 1 each PO DAILY 07/14/18 [History] Dextromethorphan HBr [Delsym] 30 mg PO DIRECTIONS UNKNOWN PRN 02/23/19 [History] Hx Tetanus, Diphtheria Vaccination/Date Given: Yes Hx Influenza Vaccination/Date Given: Yes Hx Pneumococcal Vaccination/Date Given: Yes Immunizations Up to Date: Yes Travel Risk - International Travel Have you traveled outside of the country in past 3 weeks: No - Coronavirus Screening Are you exhibiting any of the following symptoms?: No - Vaccine Status Have you recieved a Covid-19 vaccination: Yes Phosphorus Processing Supervisor: Unknown - Vaccination Dates Date of 2cond Vaccination (if applicable): February 2021 Dates if Unknown: January, - Review of Systems Constitutional: No Symptoms Eyes: No Symptoms Ears, Nose, & Throat: No Symptoms Respiratory: No Symptoms Cardiac: No Symptoms Abdominal/Gastrointestinal: Nausea, Vomiting (x1) Genitourinary Symptoms: No Symptoms Musculoskeletal: No Symptoms Skin: No Symptoms Neurological: No Symptoms Psychological: No Symptoms Endocrine: No Symptoms Hematologic/Lymphatic: No Symptoms Immunological/Allergic: No Symptoms - Past Medical History Pertinent Past Medical History: Yes Neurological History: No Pertinent History, Other ENT History: No Pertinent History Cardiac History: No Pertinent History Respiratory History: No Pertinent History, Sleep Apnea, Other Endocrine Medical History: No Pertinent History Musculoskeletal History: No Pertinent History, Muscular Dystrophy GI Medical History: No Pertinent History History: No Pertinent History Psycho-Social History: No Pertinent History Male Reproductive Disorders: No Pertinent History Other Medical History: Poor historian. Congenital myotonic dystrophy. bipap for sleep - Past Surgical History Past Surgical History: Yes Neuro Surgical History: No Pertinent History Cardiac: No Pertinent History Respiratory: No Pertinent History Gastrointestinal: No Pertinent History, Cholecystectomy Genitourinary: No Pertinent History Musculoskeletal: No Pertinent History, Orthopedic Surgery, Other Male Surgical History: No Pertinent History Other Surgical History: TONSILLECTOMY - PATELLA, cyst removed from leg - Social History Smoking Status: Never smoker Exposure to second hand smoke: No Drug Use: none Patient Lives Alone: Yes (with caregivers during the day) Significant Family History: no pertinent family hx - Nursing Vital Signs Nursing Vital Signs: Initial Vital Signs Temperature 97.7 F 05/16/21 12:42 Pulse Rate 76 05/16/21 12:42 Respiratory Rate 18 05/16/21 12:42 Blood Pressure 109/85 05/16/21 12:42 O2 Sat by Pulse Oximetry 66 L 05/16/21 12:42 Pain Scale Pain Intensity 0 - Physical Exam General Appearance: no apparent distress Eye Exam: PERRL/EOMI, eyes nml inspection Ears, Nose, Throat Exam: normal ENT inspection, TMs normal, pharynx normal, moist mucous membranes Neck Exam: normal inspection, non-tender, supple, full range of motion, No meningismus, No mass, No Brudzinski, No Kernig's Respiratory Exam: normal breath sounds, lungs clear, No respiratory distress, No airway intact Cardiovascular Exam: regular rate/rhythm, normal heart sounds, No murmur Gastrointestinal/Abdomen Exam: soft, normal bowel sounds, No tenderness Back Exam: normal inspection, normal range of motion, No CVA tenderness Extremity Exam: normal inspection, normal range of motion Neurologic Exam: alert, oriented x 3, cooperative, varnish thinner II-XII nml as tested, normal mood/affect, sensation nml, No motor deficits, No sensory deficit Skin Exam: normal color, warm, dry, No rash Lymphatic Exam: No adenopathy SpO2 Interpretation: normal SpO2: 99 O2 Delivery: Room Air - Course Nursing assessment & vital signs reviewed: Yes - Progress Progress: improved Progress Note: 05/16/21 13:09 Pt in NAD w great airway. Drank water in ER wo any evidence of aspiration, dysphagia, or odynophagia. Counseled pt/family regarding: diagnosis, need for follow-up - Departure Departure Disposition: Home Clinical Impression: Aspiration into airway Condition: Stable Critical Care Time: No Referrals: NEVAEH HAMEED MD [Primary Care Provider] - Instructions: Aspiration Pneumonia (DC) Additional Instructions: Continue current care and diet Follow up with family MD as needed Return to ER for cough/temperature greater than 100.5/Shortness of breath
[2021-05-16 13:19] VITALS: BP 133/84; PULSE 72
== END 2021-05-16 13:19 | disposition home or self-care (01) ==
LOC: ED 12:36
DX: T17.900A Unspecified foreign body in respiratory tract, part unspecified causing asphyxiation, initial encounter (principal); G71.11 Myotonic muscular dystrophy
CPT/HCPCS: 99283

== ENCOUNTER 2021-06-17 19:34 | Emergency (ER) | payer MEDICAID ==
[2021-06-17 21:09] VITALS: BP 133/85
--- NOTE | 2021-06-17 21:25 | ERPHSYRPT ---
- History of Present Illness Time Seen by Provider: 06/17/21 19:37 Source: patient, other Exam Limitations: clinical condition Patient Subjective Stated Complaint: C/O aspiration when eating today causing him to vomit X 3 times today. Last time at 7:03pm this evening Triage Nursing Assessment: Trouble speaking when triaging. TIANNA with patient and state he has dysphagia with cause unknown. Denies pain or N/V now. States had some chest pain after 3rd time vomiting this evening but went away quickly. Throat examined with no redness or swelling noted; denies pain in throat. Braces noted to BLE. Physician History: 30 years old male with history of muscular dystrophy on pured diet who had howell prior to arrival with choking episode and 2 episodes of nonprojectile, nonbilious vomiting with no hematemesis. Assisted living was concerned about possible aspiration. Patient is maintaining oxygen saturation around 98% on room air, not tachypneic or tachycardic. Denies any abdominal pain. Timing/Duration: hour(s) (1), resolved prior to arrival, improved Severity: moderate Allergies/Adverse Reactions: No Known Drug Allergies Allergy (Verified 05/16/21 12:54) Home Medications: Acetaminophen 325 mg [Tylenol 325 mg] 325 mg PO Q4HPRN PRN 02/29/16 [History] Fluticasone Propionate [Flonase NASAL] 2 gm NS DAILY PRN PRN 02/29/16 [History] Phenytoin [Dilantin] 100 mg PO BID 02/29/16 [History] Loratadine 10 mg [Claritin 10 mg] 10 mg PO DAILY 07/14/18 [History] Multivit-Min/Iron/Folic/Vit K1 [Centrum Chewable Tablet] 1 each PO DAILY 07/14/18 [History] Dextromethorphan HBr [Delsym] 30 mg PO DIRECTIONS UNKNOWN PRN 02/23/19 [History] Atorvastatin Calcium 20 mg PO HS 06/17/21 [History] Hx Tetanus, Diphtheria Vaccination/Date Given: Yes Hx Influenza Vaccination/Date Given: Yes Hx Pneumococcal Vaccination/Date Given: No Immunizations Up to Date: Yes Travel Risk - International Travel Have you traveled outside of the country in past 3 weeks: No - Coronavirus Screening Are you exhibiting any of the following symptoms?: Yes Symptoms: Vomiting/Diarrhea Close contact with a COVID-19 positive Pt in past 14-21 Days: No - Vaccine Status Have you recieved a Covid-19 vaccination: Yes Senior Center Manager: Moderna - Vaccination Dates Date of 2cond Vaccination (if applicable): 02/14/2021 - Review of Systems Constitutional: No Symptoms Ears, Nose, & Throat: No Symptoms Respiratory: No Symptoms Cardiac: No Symptoms Abdominal/Gastrointestinal: No Symptoms Genitourinary Symptoms: No Symptoms Skin: No Symptoms Endocrine: No Symptoms - Past Medical History Pertinent Past Medical History: Yes Neurological History: No Pertinent History, Other ENT History: No Pertinent History Cardiac History: No Pertinent History Respiratory History: No Pertinent History, Sleep Apnea, Other Endocrine Medical History: No Pertinent History Musculoskeletal History: No Pertinent History, Muscular Dystrophy GI Medical History: No Pertinent History History: No Pertinent History Psycho-Social History: No Pertinent History Male Reproductive Disorders: No Pertinent History Other Medical History: Hyperlipidemia, Congenital myotonic dystrophy - Past Surgical History Past Surgical History: Yes Neuro Surgical History: No Pertinent History Cardiac: No Pertinent History Respiratory: No Pertinent History Gastrointestinal: No Pertinent History, Cholecystectomy Genitourinary: No Pertinent History Musculoskeletal: No Pertinent History, Orthopedic Surgery, Other Male Surgical History: No Pertinent History Other Surgical History: TONSILLECTOMY - PATELLA, cyst removed from leg - Social History Smoking Status: Never smoker Exposure to second hand smoke: No Drug Use: none Patient Lives Alone: Yes Significant Family History: no pertinent family hx - Nursing Vital Signs Nursing Vital Signs: Initial Vital Signs Temperature 97.3 F 06/17/21 19:42 Pulse Rate 75 06/17/21 19:42 Respiratory Rate 18 06/17/21 19:42 Blood Pressure 131/88 06/17/21 19:42 O2 Sat by Pulse Oximetry 98 06/17/21 19:42 - Physical Exam General Appearance: no apparent distress, alert Eye Exam: eyes nml inspection Ears, Nose, Throat Exam: normal ENT inspection, pharyngeal erythema Neck Exam: normal inspection, supple, full range of motion Respiratory Exam: normal breath sounds, lungs clear Cardiovascular Exam: regular rate/rhythm, normal heart sounds Gastrointestinal/Abdomen Exam: soft, normal bowel sounds, No tenderness Neurologic Exam: alert, oriented x 3 Skin Exam: normal color SpO2 Interpretation: normal SpO2: 97 O2 Delivery: Room Air Ordered Tests: Active Orders 24 hr Category Date Time Status CHEST 2 VIEWS (PA AND LAT) Stat Exams 06/17/21 21:00 Taken - Progress Progress: unchanged Progress Note: 06/17/21 21:23 I have obtained 2 view chest x-ray which did not appreciate any obvious pneumonic infiltrate/aspiration. Maintaining oxygen saturation on room air. Recommended pured diet strictly and outpatient follow-up. Do not think he needs any further work-up and is stable for discharge. Counseled pt/family regarding: diagnosis, need for follow-up, rad results - Departure Departure Disposition: Home Clinical Impression: Choking episode, No problem, feared complaint unfounded Condition: Stable Critical Care Time: No Referrals: NEVAEH HAMEED MD [Primary Care Provider] - Follow Up with PCP/3 days Instructions: Choking Additional Instructions: Use pured diet. Follow-up with primary care for reevaluation. Return to ER if has any difficulty breathing, repeated vomiting etc.
[2021-06-17 21:27] VITALS: PULSE 79
[2021-06-17 23:41] VITALS: O2SAT 97
--- NOTE | 2021-06-18 08:53 | XRAY ---
Indication: Aspiration. Comparison: December 30, 2018. PA/lateral chest demonstrates new mild left base infiltrate/atelectasis with tiny effusion. Remaining heart, right lung, and bony thorax normal. Comment: Left lung findings not reported by interpreting ER clinician. Telephone report given to Dr. Lovell in the ER at 0850 hours on June 18, 2021.
== END 2021-06-17 21:33 | disposition home or self-care (01) ==
LOC: ED 19:34
DX: T17.920A Food in respiratory tract, part unspecified causing asphyxiation, initial encounter (principal); X58.XXXA Exposure to other specified factors, initial encounter; Y93.9 Activity, unspecified; Y92.9 Unspecified place or not applicable; Y99.9 Unspecified external cause status; G71.00 Muscular dystrophy, unspecified; G47.30 Sleep apnea, unspecified
CPT/HCPCS: 71046; 99283

== ENCOUNTER 2021-06-18 10:54 | Emergency (ER) | payer MEDICAID ==
[2021-06-18 11:14] VITALS: O2SAT 98
[2021-06-18] MEDS ORDERED: Sodium Chloride 0.9% 1000 ML 1,000 ML ONE (12:01)
[2021-06-18] MEDS: Sodium Chloride 0.9% 1000 ML 1,000 ML IV SCH (12:02)
[2021-06-18 12:09] LABS: Absolute Neutrophil Ct (ANC) 1.91 (1.4-6.9); BASOPHIL % 0.7 % (0.0-0.4); Basophil (Absolute #) 0.03 (0-0.4); Eosinophil % 1.6 % (0.00-5.0); Eosinophil (Absolute #) 0.07 (0-0.5); Hematocrit 49.7 % (42-50); Hemoglobin 16.8 gm/dl (12.5-18.0); Lymphocyte (Absolute #) 1.94 (1.0-4.6); Lymphocytes % 44.8 % (24.0-44.0); Mean Cell Volume 94.8 fl (78-100); Mean Corpuscular Hemoglobin 32.1 pg (26-32); Mean Corpuscular Hgb Concent. 33.8 g/dl (32-36); Mean Platelet Volume 10.6 fl (7.5-11.0); Monocyte (Absolute #) 0.38 (0.0-1.3); Monocytes % 8.8 % (0.0-12.0); Neutrophil % 44.1 % (36.0-66.0); Platelet Count 171 K/mm3 (150-450); Red Blood Count 5.24 M/mm3 (4.1-5.6); White Blood Count 4.3 K/mm3 (4.0-10.5)
[2021-06-18 12:16] LABS: ALBUMIN 4.4 g/dL (3.5-5.0); ALKALINE PHOSPHATASE 74 U/L (38-126); ANION GAP 11.9 MEQ/L (5-15); BLOOD UREA NITROGEN 9 mg/dL (9-20); CHLORIDE 105 mmol/L (98-107); Calcium 9.4 mg/dL (8.4-10.2); Carbon Dioxide 32 mmol/L (22-30); Creatinine 1 0.81 mg/dL (0.66-1.25); EST GLOMERULAR FILTRATION RATE > 60.0 ML/MIN; Glucose 91 mg/dL (74-106); Potassium 4.1 mmol/L (3.5-5.1); SGOT/AST 43 U/L (17-59); SGPT/ALT 44 U/L (0-50); SODIUM 145 mmol/L (137-145); Total Protein 7.2 g/dL (6.3-8.2)
--- NOTE | 2021-06-18 12:22 | ERPHSYRPT ---
- History of Present Illness Time Seen by Provider: 06/18/21 11:15 Source: patient Exam Limitations: no limitations Patient Subjective Stated Complaint: Pt c/o of when he swallows it feels as if it gets stuck and then he vomits it up Triage Nursing Assessment: Pt brought to the ER by the mortgage accounting clerk of [facility], jeramie maurer, denies pain, has vomited today, has taken his medicines for the past 2 days and has vomited, skin n/w/d, pulses normal, denies any other issues Physician History: Patient is a 30-year-old male with a history of muscular dystrophy presents to our ED for the second time in 24 hours for evaluation of dysphagia. Patient states that he cannot swallow his medications or food. Patient tries to swallow food and he vomits. Symptoms started last night. Patient presented to our ED he was evaluated with a chest x-ray. Chest x-ray revealed a left lower lobe infiltrate versus atelectasis. Patient has no symptomology of pneumonia. Patient symptoms are progressive. Symptoms are moderate in intensity. No specific worsening improving factors. [facility] mortgage accounting clerk is at bedside with patient. Timing/Duration: yesterday Severity: moderate Modifying Factors: Improves With: nothing Associated Symptoms: denies symptoms Allergies/Adverse Reactions: No Known Drug Allergies Allergy (Verified 06/18/21 11:14) Home Medications: Acetaminophen 325 mg [Tylenol 325 mg] 325 mg PO Q4HPRN PRN 02/29/16 [History] Fluticasone Propionate [Flonase NASAL] 2 gm NS DAILY PRN PRN 02/29/16 [History] Phenytoin [Dilantin] 100 mg PO BID 02/29/16 [History] Loratadine 10 mg [Claritin 10 mg] 10 mg PO DAILY 07/14/18 [History] Multivit-Min/Iron/Folic/Vit K1 [Centrum Chewable Tablet] 1 each PO DAILY 07/14/18 [History] Dextromethorphan HBr [Delsym] 30 mg PO DIRECTIONS UNKNOWN PRN 02/23/19 [History] Atorvastatin Calcium 20 mg PO HS 06/17/21 [History] Hx Tetanus, Diphtheria Vaccination/Date Given: Yes Hx Influenza Vaccination/Date Given: Yes Hx Pneumococcal Vaccination/Date Given: No Travel Risk - International Travel Have you traveled outside of the country in past 3 weeks: No - Coronavirus Screening Are you exhibiting any of the following symptoms?: No Close contact with a COVID-19 positive Pt in past 14-21 Days: No - Vaccine Status Have you recieved a Covid-19 vaccination: Yes 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: 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 - Vaccination Dates Date of 2cond Vaccination (if applicable): 02/14/2021 - Review of Systems Constitutional: No Symptoms, No Fever, No Chills Eyes: No Symptoms Ears, Nose, & Throat: No Symptoms Respiratory: No Symptoms, No Cough, No Dyspnea Cardiac: No Symptoms, No Chest Pain, No Edema, No Syncope Abdominal/Gastrointestinal: No Symptoms, No Abdominal Pain, No Nausea, No Vomiting, No Diarrhea Genitourinary Symptoms: No Symptoms, No Dysuria Musculoskeletal: No Symptoms, No Back Pain, No Neck Pain Skin: No Symptoms, No Rash Neurological: No Symptoms, No Dizziness, No Focal Weakness, No Sensory Changes Psychological: No Symptoms Endocrine: No Symptoms Hematologic/Lymphatic: No Symptoms Immunological/Allergic: No Symptoms All Other Systems: Reviewed and Negative - Past Medical History Pertinent Past Medical History: Yes Neurological History: No Pertinent History, Other ENT History: No Pertinent History Cardiac History: No Pertinent History Respiratory History: No Pertinent History, Sleep Apnea, Other Endocrine Medical History: No Pertinent History Musculoskeletal History: No Pertinent History, Muscular Dystrophy GI Medical History: No Pertinent History History: No Pertinent History Psycho-Social History: No Pertinent History Male Reproductive Disorders: No Pertinent History Other Medical History: Hyperlipidemia, Congenital myotonic dystrophy - Past Surgical History Past Surgical History: Yes Neuro Surgical History: No Pertinent History Cardiac: No Pertinent History Respiratory: No Pertinent History Gastrointestinal: No Pertinent History, Cholecystectomy Genitourinary: No Pertinent History Musculoskeletal: No Pertinent History, Orthopedic Surgery, Other Male Surgical History: No Pertinent History Other Surgical History: TONSILLECTOMY - PATELLA, cyst removed from leg - Social History Smoking Status: Never smoker Exposure to second hand smoke: No Drug Use: none Patient Lives Alone: Yes Significant Family History: no pertinent family hx - Nursing Vital Signs Nursing Vital Signs: Initial Vital Signs Temperature 97.1 F 06/18/21 11:09 Pulse Rate 69 06/18/21 11:09 Blood Pressure 128/86 06/18/21 11:09 O2 Sat by Pulse Oximetry 98 06/18/21 11:09 Pain Scale Pain Intensity 0 - Physical Exam General Appearance: no apparent distress, alert Eye Exam: PERRL/EOMI, eyes nml inspection Ears, Nose, Throat Exam: normal ENT inspection, TMs normal, pharynx normal, moist mucous membranes Neck Exam: normal inspection, non-tender, supple, full range of motion Respiratory Exam: normal breath sounds, lungs clear, No respiratory distress Cardiovascular Exam: regular rate/rhythm, normal heart sounds, normal peripheral pulses Gastrointestinal/Abdomen Exam: soft, normal bowel sounds, No tenderness, No mass Back Exam: normal inspection, normal range of motion, No CVA tenderness, No vertebral tenderness Extremity Exam: normal inspection, normal range of motion, pelvis stable, other (Bilateral AFOs) Neurologic Exam: alert, oriented x 3, cooperative, normal mood/affect, sensation nml, No motor deficits Skin Exam: normal color, warm, dry, No rash Lymphatic Exam: No adenopathy SpO2 Interpretation: normal SpO2: 98 O2 Delivery: Room Air - Course Nursing assessment & vital signs reviewed: Yes Ordered Tests: Active Orders 24 hr Category Date Time Status IV Insertion STAT Care 06/18/21 11:46 Active CBC W DIFF Stat Lab 06/18/21 11:59 Completed CMP Stat Lab 06/18/21 11:59 Completed Medication Summary Generic Name Dose Route Start Last Admin Trade Name Freq PRN Reason Stop Dose Admin Sodium Chloride 1,000 mls @ 100 mls/hr 06/18/21 12:00 06/18/21 12:02 Sodium Chloride 0.9% 1000 Ml IV 07/18/21 11:59 100 mls/hr .Q10H ROBER Administration Lab/Rad Data: Laboratory Result Diagrams 06/18/21 11:59 06/18/21 11:59 Laboratory Results 06/18/21 06/18/21 Range/Units 11:59 11:59 WBC 4.3 (4.0-10.5) K/mm3 RBC 5.24 (4.1-5.6) M/mm3 Hgb 16.8 (12.5-18.0) gm/dl Hct 49.7 (42-50) % MCV 94.8 (78-100) fl MCH 32.1 H (26-32) pg MCHC 33.8 (32-36) g/dl RDW 14.0 (11.5-14.0) % Plt Count 171 (150-450) K/mm3 MPV 10.6 (7.5-11.0) fl Gran % 44.1 (36.0-66.0) % Eos # (Auto) 0.07 (0-0.5) Absolute Lymphs (auto) 1.94 (1.0-4.6) Absolute Monos (auto) 0.38 (0.0-1.3) Lymphocytes % 44.8 H (24.0-44.0) % Monocytes % 8.8 (0.0-12.0) % Eosinophils % 1.6 (0.00-5.0) % Basophils % 0.7 (0.0-0.4) % Absolute Granulocytes 1.91 (1.4-6.9) Basophils # 0.03 (0-0.4) Sodium 145 (137-145) mmol/L Potassium 4.1 (3.5-5.1) mmol/L Chloride 105 (98-107) mmol/L Carbon Dioxide 32 H (22-30) mmol/L Anion Gap 11.9 (5-15) MEQ/L BUN 9 (9-20) mg/dL Creatinine 0.81 (0.66-1.25) mg/dL Estimated GFR > 60.0 ML/MIN Glucose 91 (74-106) mg/dL Calcium 9.4 (8.4-10.2) mg/dL Total Bilirubin 0.40 (0.2-1.3) mg/dL AST 43 (17-59) U/L ALT 44 (0-50) U/L Alkaline Phosphatase 74 (38-126) U/L Serum Total Protein 7.2 (6.3-8.2) g/dL Albumin 4.4 (3.5-5.0) g/dL - Progress Progress: improved Progress Note: Case discussed with Dr. Gallegos neurologist covering patients neurologist Dr. Peterson. Dr. Gallegos accepted transfer for neuro, GI eval possible PEG tube hilton cement. Case discussed with hospitalist Dr. Gaviria who accepts transfer. We are awaiting transfer this time. Patient updated on plan of care. Patient agrees to transfer to [facility] for further evaluation and treatment. 06/18/21 12:25 06/18/21 12:56 Care provider will drive patient to [facility] in her personal vehicle. Transfer paperwork completed. Vitals stable at time of transfer. 06/18/21 12:57 Patient tolerating oral secretions well. Counseled pt/family regarding: lab results, diagnosis, need for follow-up - Departure Departure Disposition: Transfer Clinical Impression: Dysphagia Condition: Stable Critical Care Time: No Referrals: NEVAEH HAMEED MD [Primary Care Provider] -
[2021-06-18 12:50] VITALS: BP 121/93; PULSE 65
== END 2021-06-18 13:15 | disposition short-term general hospital (02) ==
LOC: ED 10:54
DX: R13.10 Dysphagia, unspecified (principal); Z79.899 Other long term (current) drug therapy; G71.11 Myotonic muscular dystrophy; Z20.822 Contact with and (suspected) exposure to COVID-19
CPT/HCPCS: 36415; 80053; 85025; 99283; U0003

== ENCOUNTER 2021-11-24 09:59 | Emergency (ER) | payer MEDICAID ==
[2021-11-24 10:07] VITALS: O2SAT 99
[2021-11-24 11:08] VITALS: BP 111/72
--- NOTE | 2021-11-24 11:28 | ERPHSYRPT ---
- History of Present Illness Time Seen by Provider: 11/24/21 10:04 Source: patient, other Exam Limitations: no limitations Patient Subjective Stated Complaint: pt here for chocking on biscuts and gravy this am, he vomited x2 today, but states now he feels fine. he had the same problem last june. 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 Patient reports he felt as something was stuck in the middle of his chest and vomited twice. Did not have any difficulty breathing. Does not feel nauseated now. Timing/Duration: today, resolved prior to arrival, improved Severity: mild Modifying Factors: Worsens With: eating Associated Symptoms: vomiting, other Allergies/Adverse Reactions: No Known Drug Allergies Allergy (Verified 11/24/21 10:07) Home Medications: Acetaminophen 325 mg [Tylenol 325 mg] 325 mg PO Q4HPRN PRN 02/29/16 [History] Fluticasone Propionate [Flonase NASAL] 2 gm NS DAILY PRN PRN 02/29/16 [History] Phenytoin [Dilantin] 100 mg PO BID 02/29/16 [History] Loratadine 10 mg [Claritin 10 mg] 10 mg PO DAILY 07/14/18 [History] Multivit-Min/Iron/Folic/Vit K1 [Centrum Chewable Tablet] 1 each PO DAILY 07/14/18 [History] Dextromethorphan HBr [Delsym] 30 mg PO DIRECTIONS UNKNOWN PRN 02/23/19 [History] Atorvastatin Calcium 20 mg PO HS 06/17/21 [History] Hx Tetanus, Diphtheria Vaccination/Date Given: Yes Hx Influenza Vaccination/Date Given: Yes Hx Pneumococcal Vaccination/Date Given: No Immunizations Up to Date: Yes Travel Risk - International Travel Have you traveled outside of the country in past 3 weeks: No - Coronavirus Screening Are you exhibiting any of the following symptoms?: No Close contact with a COVID-19 positive Pt in past 14-21 Days: No - Vaccine Status Have you recieved a Covid-19 vaccination: Yes 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 - Vaccination Dates Date of 2cond Vaccination (if applicable): 02/14/2021 - Review of Systems Constitutional: No Symptoms Ears, Nose, & Throat: No Symptoms Respiratory: No Symptoms Cardiac: No Symptoms Abdominal/Gastrointestinal: Vomiting Genitourinary Symptoms: No Symptoms Skin: No Symptoms Endocrine: No Symptoms - Past Medical History Pertinent Past Medical History: Yes Neurological History: No Pertinent History, Other ENT History: No Pertinent History Cardiac History: No Pertinent History Respiratory History: No Pertinent History, Sleep Apnea, Other Endocrine Medical History: No Pertinent History Musculoskeletal History: No Pertinent History, Muscular Dystrophy GI Medical History: No Pertinent History History: No Pertinent History Psycho-Social History: No Pertinent History Male Reproductive Disorders: No Pertinent History Other Medical History: Hyperlipidemia, Congenital myotonic dystrophy - Past Surgical History Past Surgical History: Yes Neuro Surgical History: No Pertinent History Cardiac: No Pertinent History Respiratory: No Pertinent History Gastrointestinal: No Pertinent History, Cholecystectomy Genitourinary: No Pertinent History Musculoskeletal: No Pertinent History, Orthopedic Surgery, Other Male Surgical History: No Pertinent History Other Surgical History: TONSILLECTOMY - PATELLA, cyst removed from leg - Social History Smoking Status: Never smoker Exposure to second hand smoke: No Drug Use: none 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) Significant Family History: no pertinent family hx - Nursing Vital Signs Nursing Vital Signs: Initial Vital Signs Temperature 97.0 F 11/24/21 10:00 Pulse Rate 71 11/24/21 10:00 Respiratory Rate 18 11/24/21 10:00 Blood Pressure 122/88 11/24/21 10:00 O2 Sat by Pulse Oximetry 99 11/24/21 10:00 Pain Scale Pain Intensity 0 - Physical Exam General Appearance: no apparent distress, alert Eye Exam: PERRL/EOMI Ears, Nose, Throat Exam: normal ENT inspection, TMs normal, pharynx normal Neck Exam: normal inspection, non-tender, supple, full range of motion Respiratory Exam: normal breath sounds, lungs clear Cardiovascular Exam: regular rate/rhythm, normal heart sounds Gastrointestinal/Abdomen Exam: soft, normal bowel sounds, No tenderness Back Exam: normal inspection Neurologic Exam: alert, oriented x 3, cooperative Skin Exam: normal color SpO2 Interpretation: normal SpO2: 99 O2 Delivery: Room Air Ordered Tests: Active Orders 24 hr Category Date Time Status CHEST 1 VIEW (PORTABLE) Stat Exams 11/24/21 10:32 Ordered - Progress Progress: improved Progress Note: 11/24/21 11:27 Has no signs of distress. Lungs bilateral clear to auscultation. He does not have any difficulty swallowing and passed swallowing challenge here with liquids. Recommended pured diet and outpatient follow-up with his neurologist and GI/primary care for further evaluation if needed. Discussed signs symptoms of worsening needing return to ER which patient/caregiver seems understanding Counseled pt/family regarding: diagnosis, need for follow-up, rad results - Departure Departure Disposition: Home Clinical Impression: Choking episode Condition: Stable Critical Care Time: No Referrals: NEVAEH HAMEED MD [Primary Care Provider] - Follow up/PCP as directed (In 2 days for reevaluation) Instructions: Choking, Pureed Diet Additional Instructions: Take pured diet strictly. Follow-up with your primary care for reevaluation. Return to ER if again have choking episode or difficulty swallowing/vomiting etc.
[2021-11-24 11:29] VITALS: PULSE 64
--- NOTE | 2021-11-24 18:02 | XRAY ---
Indication: Aspiration. Comparison: June 17, 2021. Portable chest again demonstrates minimal left base infiltrate versus atelectasis. Remaining heart and lungs unremarkable. Bony thorax intact again with old right clavicle fracture.
== END 2021-11-24 11:32 | disposition home or self-care (01) ==
LOC: ED 09:59
DX: T17.928A Food in respiratory tract, part unspecified causing other injury, initial encounter (principal); G71.11 Myotonic muscular dystrophy; R13.10 Dysphagia, unspecified; R11.11 Vomiting without nausea; Z79.899 Other long term (current) drug therapy; E78.5 Hyperlipidemia, unspecified
CPT/HCPCS: 71045; 99283

== ENCOUNTER 2021-11-24 13:10 | Emergency (ER) | payer MEDICAID ==
--- NOTE | 2021-11-24 13:58 | ERPHSYRPT ---
- History of Present Illness Time Seen by Provider: 11/24/21 13:18 Source: patient, other Exam Limitations: no limitations Patient Subjective Stated Complaint: Pt was discharged from the ED this morning after initially choking and vomiting and then coming in to be checked out, pt had done 2 water challenges which he passed with no difficulties and was discharged, pt returned home and had some water and took a 3 bites of pudding and then it got stuck and he vomited, pt states he is having some pain in his chest now Triage Nursing Assessment: Pt brought in by caregiver, vitals wnl, rates pain as 3/10, unable to eat without it feeling like it gets stuck in his throat, only eats when a caregiver is there, pt talking, no breathing difficulties, doesn't appear to be in any distress Physician History: 31 years old male with history of muscular dystrophy chronic dysphagia who was seen in the ER earlier after he got choked on and vomited twice, x-rays were negative for any acute aspiration and patient did tolerate oral liquid, was discharged back. Patient apparently took 3 bites of pudding with water and got choked on again and vomited. Complaining of some dull aching sensation in the center of the chest. Not in any distress at present. Patient had similar symptoms last year needing EGD to relieve the obstruction. Timing/Duration: today Severity: moderate Modifying Factors: Worsens With: eating Allergies/Adverse Reactions: No Known Drug Allergies Allergy (Verified 11/24/21 10:07) Home Medications: Acetaminophen 325 mg [Tylenol 325 mg] 325 mg PO Q4HPRN PRN 02/29/16 [History] Fluticasone Propionate [Flonase NASAL] 2 gm NS DAILY PRN PRN 02/29/16 [History] Phenytoin [Dilantin] 100 mg PO BID 02/29/16 [History] Loratadine 10 mg [Claritin 10 mg] 10 mg PO DAILY 07/14/18 [History] Multivit-Min/Iron/Folic/Vit K1 [Centrum Chewable Tablet] 1 each PO DAILY 07/14/18 [History] Dextromethorphan HBr [Delsym] 30 mg PO DIRECTIONS UNKNOWN PRN 02/23/19 [History] Atorvastatin Calcium 20 mg PO HS 06/17/21 [History] Hx Tetanus, Diphtheria Vaccination/Date Given: Yes Hx Influenza Vaccination/Date Given: Yes Hx Pneumococcal Vaccination/Date Given: No Travel Risk - International Travel Have you traveled outside of the country in past 3 weeks: No - Coronavirus Screening Are you exhibiting any of the following symptoms?: No Close contact with a COVID-19 positive Pt in past 14-21 Days: No - Vaccine Status Have you recieved a Covid-19 vaccination: Yes 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 - Vaccination Dates Date of 2cond Vaccination (if applicable): 02/14/2021 - Review of Systems Constitutional: No Symptoms Eyes: No Symptoms Ears, Nose, & Throat: No Symptoms Respiratory: No Symptoms Cardiac: Chest Pain Abdominal/Gastrointestinal: Vomiting Genitourinary Symptoms: No Symptoms Musculoskeletal: No Symptoms Skin: No Symptoms Endocrine: No Symptoms Hematologic/Lymphatic: No Symptoms Immunological/Allergic: No Symptoms - Past Medical History Pertinent Past Medical History: Yes Neurological History: No Pertinent History, Other ENT History: No Pertinent History Cardiac History: No Pertinent History Respiratory History: No Pertinent History, Sleep Apnea, Other Endocrine Medical History: No Pertinent History Musculoskeletal History: No Pertinent History, Muscular Dystrophy GI Medical History: No Pertinent History History: No Pertinent History Psycho-Social History: No Pertinent History Male Reproductive Disorders: No Pertinent History Other Medical History: Hyperlipidemia, Congenital myotonic dystrophy - Past Surgical History Past Surgical History: Yes Neuro Surgical History: No Pertinent History Cardiac: No Pertinent History Respiratory: No Pertinent History Gastrointestinal: No Pertinent History, Cholecystectomy Genitourinary: No Pertinent History Musculoskeletal: No Pertinent History, Orthopedic Surgery, Other Male Surgical History: No Pertinent History Other Surgical History: TONSILLECTOMY - PATELLA, cyst removed from leg - Social History Smoking Status: Never smoker Exposure to second hand smoke: No Drug Use: none 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) Significant Family History: no pertinent family hx - Nursing Vital Signs Nursing Vital Signs: Initial Vital Signs Temperature 96.6 F 11/24/21 13:15 Pulse Rate 64 11/24/21 13:15 Blood Pressure 122/83 11/24/21 13:15 O2 Sat by Pulse Oximetry 95 11/24/21 13:15 Pain Scale Pain Intensity 3 - Physical Exam General Appearance: no apparent distress, alert Eye Exam: PERRL/EOMI Ears, Nose, Throat Exam: TMs normal, pharyngeal erythema Neck Exam: normal inspection, non-tender, supple, full range of motion Respiratory Exam: normal breath sounds, lungs clear Cardiovascular Exam: regular rate/rhythm, normal heart sounds Gastrointestinal/Abdomen Exam: soft, normal bowel sounds, No tenderness Back Exam: normal inspection, normal range of motion Extremity Exam: normal inspection, normal range of motion Neurologic Exam: alert, oriented x 3, cooperative Skin Exam: normal color SpO2 Interpretation: normal SpO2: 95 O2 Delivery: Room Air - Progress Progress: unchanged Progress Note: 11/24/21 13:57 I have discussed with Dr. Omkar MCMANUS who recommended transfer patient to [facility]. We will get rapid Covid test done. Counseled pt/family regarding: diagnosis, need for follow-up - Departure Departure Disposition: Transfer Clinical Impression: Dysphagia, Choking episode Condition: Stable Critical Care Time: No Referrals: NEVAEH HAMEED MD [Primary Care Provider] - Follow up/PCP as directed
[2021-11-24] MEDS ORDERED: Sodium Chloride 0.9% 1000 ML 1,000 ML ONE (14:04)
[2021-11-24] MEDS ORDERED: Sodium Chloride 0.9% 1000 ML 1,000 ML IV SCH (14:15)
[2021-11-24 14:37] LABS: INFLUENZA A NEGATIVE (NEGATIVE); INFLUENZA B NEGATIVE (NEGATIVE); RESPIRATORY SYNCTIAL VIRUS NEGATIVE (Negative); SARS-CoV-2 Xpert Express NEGATIVE (NEGATIVE)
[2021-11-24 18:01] VITALS: BP 116/88; PULSE 76; O2SAT 96
== END 2021-11-24 18:12 | disposition short-term general hospital (02) ==
LOC: ED 13:10
DX: R13.10 Dysphagia, unspecified (principal); T17.928A Food in respiratory tract, part unspecified causing other injury, initial encounter; G71.11 Myotonic muscular dystrophy; R11.11 Vomiting without nausea; R07.9 Chest pain, unspecified; E78.5 Hyperlipidemia, unspecified; Z79.899 Other long term (current) drug therapy
CPT/HCPCS: 0241U; 36000; 99284

== ENCOUNTER 2022-04-01 09:36 | Day surgery (SDC) | payer MEDICAID ==
--- NOTE | 2022-04-01 08:22 | HP ---
DATE OF SURGERY: 04/01/2022 HISTORY OF PRESENT ILLNESS: The patient is a 31-year-old with enlarging nodule or cyst on top of scalp area worse since January, increasing in size and desires excision. PAST MEDICAL HISTORY: Sleep apnea, myotonic dystrophy, seasonal allergies. PAST SURGICAL HISTORY: Includes cholecystectomy in the past. MEDICATIONS: Phenytoin, atorvastatin, vitamins, loratadine, Flonase. ALLERGIES: NKDA. FAMILY HISTORY: Myotonic dystrophy. SOCIAL HISTORY: No smoking or alcohol abuse. REVIEW OF SYSTEMS: Fourteen systems reviewed. No chest pain or palpitations. Other systems negative or noncontributory as above and per preadmission questionnaire. PHYSICAL EXAMINATION: GENERAL: No acute distress. HEENT: Sclerae nonicteric. Enlarging scalp cyst or nodule. NECK: No JVD. CHEST: Equal excursion, nonlabored breathing. CVS: Regular rate and rhythm. ABDOMEN: Soft. No peritoneal signs. EXTREMITIES: No significant edema. NEURO: Alert, oriented, moving extremities symmetrically. RECTAL: Deferred timed to endoscopy exam. PSYCH: Appropriate mood and affect. IMPRESSION: Enlarging scalp cyst or nodule in need of excision. I feel the patient is a candidate. General risk of bleeding or infection, risk of wound dehiscence possibly requiring packing, general risk of aches, pains, burning or numbness possible prison. General risk of anesthesia, deep venous thrombosis, pulmonary embolism, or pneumonia but not limited to. Will proceed with excisional biopsy of enlarging scalp cyst or nodule as an outpatient.
[~2022-04-01 09:36] MED LIST: Sensorcaine 0.25% 10 ML ONE
[2022-04-01] MEDS ORDERED: Lactated Ringers 1,000 ML IV ONE (10:24)
[2022-04-01] MEDS ORDERED: CEFAZOLIN 2 GM-D5W BAG** 2 GM/50 ML ML IV ONE (10:24)
[2022-04-01] MEDS ORDERED: CEFAZOLIN 2 GM-D5W BAG** 2 GM/50 ML ML IV SCH (10:30)
[2022-04-01] MEDS ORDERED: Lactated Ringers 1,000 ML IV SCH (10:30)
[2022-04-01 11:39] LABS: ALBUMIN 4.1 g/dL (3.5-5.0); ALKALINE PHOSPHATASE 94 U/L (38-126); BLOOD UREA NITROGEN 12 mg/dL (9-20); CHLORIDE 107 mmol/L (98-107); Calcium 9.3 mg/dL (8.4-10.2); Carbon Dioxide 29 mmol/L (22-30); Creatinine 1 0.69 mg/dL (0.66-1.25); EST GLOMERULAR FILTRATION RATE > 60.0 ML/MIN; Glucose 77 mg/dL (74-106); SGOT/AST 79 U/L (17-59); SGPT/ALT 91 U/L (0-50); SODIUM 144 mmol/L (137-145); Total Protein 7.1 g/dL (6.3-8.2)
[2022-04-01 12:03] LABS: ANION GAP 11.4 MEQ/L (5-15); Potassium 3.4 mmol/L (3.5-5.1)
[2022-04-01] MEDS ORDERED: SUBLIMAZE 100 MCG/2 ML ONE (13:14)
[2022-04-01] MEDS ORDERED: Versed 2 MG/2 ML Injection ONE (13:14)
[2022-04-01] MEDS ORDERED: DIPRIVAN 200 MG/20 ML IV ONE (13:14)
[2022-04-01] MEDS ORDERED: TORAdol 30 mg Injection ONE (13:45)
[2022-04-01] MEDS ORDERED: Ephedrine Sulfate 50 MG/ML ONE (13:54)
[2022-04-01] MEDS ORDERED: BACIGUENT 30 GM ONE (13:56)
--- NOTE | 2022-04-01 15:06 | OP ---
SURGERY DATE/TIME: 04/01/2022 1321 PREOPERATIVE DIAGNOSIS: Enlarging scalp cyst or nodule. POSTOPERATIVE DIAGNOSIS: Enlarging scalp cyst or nodule. PROCEDURE: Excisional biopsy of 2.5 cm scalp cyst. SURGEON: Dr. Rene Shannon. ANESTHESIA: General. ESTIMATED BLOOD LOSS: Minimal. INDICATIONS: As noted above. Risks and benefits explained in detail and not limited to and consent obtained. Site had been marked and confirmed in the preoperative holding area. DESCRIPTION OF PROCEDURE AND FINDINGS: The patient is taken to the operating room. General anesthesia induced. Prepped and draped in the usual sterile fashion. After official time out and no disagreement with planned procedure, including a small sliver of skin with the cyst. Dissection carried down and circumferentially around this cyst down to the underlying fascia underneath, this was passed off for pathology. There was a little lobulation off to the side this is with the cyst itself and passed off. There is no evidence of any residual cyst material in the wound. It was irrigated out with copious amounts of sterile saline. Good hemostasis noted. The skin is closed with interrupted 3-0 Prolene. The patient tolerated the procedure well. Findings discussed with caregiver out in the waiting area.
[2022-04-01 17:04] VITALS: BP 110/68; PULSE 72; O2SAT 97
== END 2022-04-01 15:55 | disposition home or self-care (01) ==
LOC: SDC 09:36
PROVIDERS: ATTEND Surgery
DX: D23.4 Other benign neoplasm of skin of scalp and neck (principal); L72.0 Epidermal cyst
CPT/HCPCS: 36415; 80053; 93005; J0690; J1885; J2250; J2704; J3010; A9270-GY

== ENCOUNTER 2022-09-03 07:50 | Emergency (ER) | payer MEDICAID ==
--- NOTE | 2022-09-03 07:59 | ERPHSYRPT ---
- History of Present Illness Time Seen by Provider: 09/03/22 07:56 Source: patient Exam Limitations: no limitations Physician History: Patient is a 32-year-old male who has some impairments who also has a diagnosis of dysphagia. The exact nature of his dysphagia is not clear but probably is esophageal dysmotility. He had a choking episode this morning. EMS and the rail specialist say that because of his esophageal problems anytime he has a choking episode he needs to be checked for aspiration. On arrival he says he is improving and doing better. He speaks without problems and there is no airway distress. No coughing has been noted. Timing/Duration: today, improved Severity: moderate Modifying Factors: Improves With: eating Associated Symptoms: nausea, vomiting Allergies/Adverse Reactions: No Known Drug Allergies Allergy (Verified 03/29/22 10:03) Home Medications: Acetaminophen 325 mg [Tylenol 325 mg] 325 mg PO Q4HPRN PRN 02/29/16 [History] Fluticasone Propionate [Flonase NASAL] 2 gm NS DAILY PRN PRN 02/29/16 [History] Phenytoin [Dilantin] 100 mg PO BID 02/29/16 [History] Loratadine 10 mg [Claritin 10 mg] 10 mg PO DAILY 07/14/18 [History] Multivit-Min/Iron/Folic/Vit K1 [Centrum Chewables Adults Tab] 1 each PO DAILY 07/14/18 [History] Atorvastatin Calcium 20 mg PO HS 06/17/21 [History] Hx Tetanus, Diphtheria Vaccination/Date Given: Yes Hx Influenza Vaccination/Date Given: Yes Hx Pneumococcal Vaccination/Date Given: No Travel Risk - Vaccine Status Have you recieved a Covid-19 vaccination: Yes 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 - Vaccination Dates Date of 2cond Vaccination (if applicable): 02/14/2021 - Review of Systems Constitutional: No Fever, No Chills Eyes: No Symptoms Ears, Nose, & Throat: No Symptoms, Painful Swallowing Respiratory: No Cough, No Dyspnea Cardiac: No Chest Pain, No Edema, No Syncope Abdominal/Gastrointestinal: Nausea, Vomiting, Dysphagia, No Abdominal Pain, No Diarrhea Genitourinary Symptoms: No Dysuria Musculoskeletal: No Back Pain, No Neck Pain Skin: No Rash Neurological: No Dizziness, No Focal Weakness, No Sensory Changes Psychological: No Symptoms Endocrine: No Symptoms All Other Systems: Reviewed and Negative - Past Medical History Pertinent Past Medical History: Yes Neurological History: Other ENT History: No Pertinent History Cardiac History: No Pertinent History, High Cholesterol Respiratory History: No Pertinent History, Sleep Apnea, Other Endocrine Medical History: No Pertinent History Musculoskeletal History: Muscular Dystrophy GI Medical History: No Pertinent History History: No Pertinent History Psycho-Social History: No Pertinent History Male Reproductive Disorders: No Pertinent History Other Medical History: Hyperlipidemia, Congenital myotonic dystrophy - Past Surgical History Past Surgical History: Yes Neuro Surgical History: No Pertinent History Cardiac: No Pertinent History Respiratory: No Pertinent History Gastrointestinal: Cholecystectomy Genitourinary: No Pertinent History Musculoskeletal: No Pertinent History, Orthopedic Surgery, Other Male Surgical History: No Pertinent History Other Surgical History: TONSILLECTOMY - PATELLA, cyst removed from leg - Social History Smoking Status: Never smoker Exposure to second hand smoke: No Drug Use: none 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) Significant Family History: no pertinent family hx - Nursing Vital Signs Nursing Vital Signs: Initial Vital Signs Temperature 97.3 F 09/03/22 07:59 Pulse Rate 71 09/03/22 07:59 Respiratory Rate 19 09/03/22 07:59 Blood Pressure 120/82 09/03/22 07:59 O2 Sat by Pulse Oximetry 100 09/03/22 07:59 Pain Scale Pain Intensity 0 - Physical Exam General Appearance: no apparent distress, alert Eye Exam: PERRL/EOMI, eyes nml inspection Ears, Nose, Throat Exam: normal ENT inspection, TMs normal, pharynx normal, moist mucous membranes Neck Exam: normal inspection, non-tender, supple, full range of motion Respiratory Exam: normal breath sounds, lungs clear, No respiratory distress Cardiovascular Exam: regular rate/rhythm, normal heart sounds, normal peripheral pulses Gastrointestinal/Abdomen Exam: soft, normal bowel sounds, No tenderness, No mass Back Exam: normal inspection, normal range of motion, No CVA tenderness, No vertebral tenderness Extremity Exam: normal inspection, normal range of motion, pelvis stable Neurologic Exam: alert, oriented x 3, cooperative, normal mood/affect, nml cerebellar function, nml station & gait, sensation nml, No motor deficits Skin Exam: normal color, warm, dry, No rash Lymphatic Exam: No adenopathy - Course Nursing assessment & vital signs reviewed: Yes - Radiology Exams Chest X-ray Interpretation: Interpreted by me, Negative Ordered Tests: Active Orders 24 hr Category Date Time Status CHEST 2 VIEWS (PA AND LAT) Stat Exams 09/03/22 08:11 Taken - Progress Progress: improved - Departure Departure Disposition: Home Clinical Impression: Dysphagia Condition: Stable Critical Care Time: No Referrals: NEVAEH HAMEED MD [Primary Care Provider] - Follow up/PCP as directed Instructions: Dysphagia (DC)
--- NOTE | 2022-09-03 08:50 | XRAY ---
Indication: Choking. Aspiration. Comparison: November 24, 2021 PA/lateral chest inflated and clear. Heart and mediastinal structures within normal limits. Bony thorax intact. Impression: Nonacute chest.
[2022-09-03 08:55] VITALS: BP 122/80; PULSE 63; O2SAT 97
== END 2022-09-03 08:55 | disposition home or self-care (01) ==
LOC: ED 07:50
DX: R13.10 Dysphagia, unspecified (principal); R11.2 Nausea with vomiting, unspecified; G71.11 Myotonic muscular dystrophy; Z79.899 Other long term (current) drug therapy
CPT/HCPCS: 71046; 99282

== ENCOUNTER 2022-09-03 10:30 | Emergency (ER) | payer MEDICAID ==
[2022-09-03 10:44] VITALS: BP 127/70; PULSE 63; O2SAT 100
--- NOTE | 2022-09-03 10:46 | ERPHSYRPT ---
- History of Present Illness Time Seen by Provider: 09/03/22 10:43 Source: patient, EMS Exam Limitations: clinical condition Physician History: Patient is a 32-year-old male who returns to the ER for his second visit of the morning following a second choking episode. Apparently this morning he choked while eating eggs sausage gravy biscuits etc. vomited a couple of times by the time he arrived in the ER for his first visit he was doing well we did a chest x-ray his exam was normal chest x-ray was normal and he was doing well. After the x-rays were done we allowed him to drink fluids and he did well with those. We released him from the ER. Later after he had been released he ate a chocolate chip cookie and got choked again. Timing/Duration: today Severity: mild Modifying Factors: Improves With: eating Associated Symptoms: vomiting Allergies/Adverse Reactions: No Known Drug Allergies Allergy (Verified 09/03/22 10:36) Home Medications: Acetaminophen 325 mg [Tylenol 325 mg] 325 mg PO Q4HPRN PRN 02/29/16 [History] Fluticasone Propionate [Flonase NASAL] 2 gm NS DAILY PRN PRN 02/29/16 [ History] Loratadine 10 mg [Claritin 10 mg] 10 mg PO DAILY 07/14/18 [History] Multivit-Min/Iron/Folic/Vit K1 [Centrum Chewables Adults Tab] 1 each PO DAILY 07/14/18 [History] Atorvastatin Calcium 20 mg PO HS 06/17/21 [History] Hx Tetanus, Diphtheria Vaccination/Date Given: Yes Hx Influenza Vaccination/Date Given: Yes Hx Pneumococcal Vaccination/Date Given: No Travel Risk - Vaccine Status Have you recieved a Covid-19 vaccination: Yes 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 - Vaccination Dates Date of 2cond Vaccination (if applicable): 02/14/2021 - Review of Systems Constitutional: No Fever, No Chills Eyes: No Symptoms Ears, Nose, & Throat: No Symptoms Respiratory: No Cough, No Dyspnea Cardiac: No Chest Pain, No Edema, No Syncope Abdominal/Gastrointestinal: Vomiting, Dysphagia, No Abdominal Pain, No Nausea, No Diarrhea Genitourinary Symptoms: No Dysuria Musculoskeletal: No Back Pain, No Neck Pain Skin: No Rash Neurological: No Dizziness, No Focal Weakness, No Sensory Changes Psychological: No Symptoms Endocrine: No Symptoms All Other Systems: Reviewed and Negative - Past Medical History Pertinent Past Medical History: Yes Neurological History: Other ENT History: No Pertinent History Cardiac History: No Pertinent History, High Cholesterol Respiratory History: No Pertinent History, Sleep Apnea, Other Endocrine Medical History: No Pertinent History Musculoskeletal History: Muscular Dystrophy GI Medical History: No Pertinent History History: No Pertinent History Psycho-Social History: No Pertinent History Male Reproductive Disorders: No Pertinent History Other Medical History: Hyperlipidemia, Congenital myotonic dystrophy - Past Surgical History Past Surgical History: Yes Neuro Surgical History: No Pertinent History Cardiac: No Pertinent History Respiratory: No Pertinent History Gastrointestinal: Cholecystectomy Genitourinary: No Pertinent History Musculoskeletal: No Pertinent History, Orthopedic Surgery, Other Male Surgical History: No Pertinent History Other Surgical History: TONSILLECTOMY - PATELLA, cyst removed from leg - Social History Smoking Status: Never smoker Exposure to second hand smoke: No Drug Use: none 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 Family History: no pertinent family hx - Nursing Vital Signs Nursing Vital Signs: Initial Vital Signs Temperature 97.9 F 09/03/22 10:37 Pulse Rate 63 09/03/22 10:37 Respiratory Rate 18 09/03/22 10:37 Blood Pressure 127/70 09/03/22 10:37 O2 Sat by Pulse Oximetry 100 09/03/22 10:37 Pain Scale Pain Intensity 0 - Physical Exam General Appearance: mild distress, alert Eye Exam: PERRL/EOMI, eyes nml inspection Ears, Nose, Throat Exam: normal ENT inspection, TMs normal, pharynx normal, moist mucous membranes Neck Exam: normal inspection, non-tender, supple, full range of motion Respiratory Exam: normal breath sounds, lungs clear, No respiratory distress Cardiovascular Exam: regular rate/rhythm, normal heart sounds, normal peripheral pulses Gastrointestinal/Abdomen Exam: soft, normal bowel sounds, No tenderness, No mass Back Exam: normal inspection, normal range of motion, No CVA tenderness, No vertebral tenderness Extremity Exam: normal inspection, normal range of motion, pelvis stable Neurologic Exam: alert, oriented x 3, cooperative, normal mood/affect, nml cerebellar function, nml station & gait, sensation nml, No motor deficits Skin Exam: normal color, warm, dry, No rash Lymphatic Exam: No adenopathy SpO2 Interpretation: normal SpO2: 100 O2 Delivery: Room Air - Course Nursing assessment & vital signs reviewed: Yes - Radiology Exams Chest X-ray Interpretation: Interpreted by me, Negative Ordered Tests: Active Orders 24 hr Category Date Time Status CHEST 1 VIEW (PORTABLE) Stat Exams 09/03/22 10:41 Taken - Progress Progress Note: 09/03/22 11:02 We discussed the case with his english language learner tutor at [place] we told him what had transpired this morning he recommended that the caretakers give the office a call for an outpatient visit. He said that he recently did an EGD on this patient and understand that involves some esophageal dilation. We talked to the caretakers they are going to use liquids only until they see Dr. Rogers. Discussed with DrYo: Other (Dr Ceja) Will see patient in: office - Departure Clinical Impression: Dysphagia, Choking episode Condition: Stable Critical Care Time: No Referrals: NEVAEH HAMEED MD [Primary Care Provider] - Follow up/PCP as directed Instructions: Dysphagia (DC)
--- NOTE | 2022-09-03 11:01 | XRAY ---
Indication: Choking. Aspiration. Comparison: September 03, 2022 Portable chest again demonstrates normal heart, lungs, and bony thorax.
--- NOTE | 2022-09-03 11:01 | XRAY ---
Indication: Choking. Aspiration. Comparison: September 03, 2022 Portable chest again demonstrates normal heart, lungs, and bony thorax.
== END 2022-09-03 11:17 | disposition home or self-care (01) ==
LOC: ED 10:30
DX: R13.10 Dysphagia, unspecified (principal); R09.89 Other specified symptoms and signs involving the circulatory and respiratory systems; G71.11 Myotonic muscular dystrophy; Z79.899 Other long term (current) drug therapy
CPT/HCPCS: 71045; 99282